=== PATIENT | female | born 1945 | race Caucasian/White ===

== ENCOUNTER 2018-12-25 10:05 | Emergency (ER) | payer MEDICARE, MEDICAID ==
[~2018-12-25] VITALS: Ht 157.5 cm; Wt 79.4 kg
[2018-12-25 10:44] VITALS: Ht 157.5 cm; Wt 79.4 kg
[2018-12-25 12:05] LABS: BASOPHIL % 0.2 % (0-2); CALCIUM 9.6 mg/dL (8.5-10.1); CARBON DIOXIDE 30.7 mmol/L (21-32); CHLORIDE SERUM 102 mmol/L (98-107); CREATININE SERUM 0.7 mg/dL (0.6-1.0); GLUCOSE SERUM 102 mg/dL (74-106); PLATELET COUNT 182 x10^3mcL (130-400); POTASSIUM SERUM 4.5 mmol/L (3.5-5.1); RED CELL DISTRIBUTION WIDTH 13.3 % (11.5-14.5); SODIUM SERUM 139 mmol/L (136-145)
[2018-12-25 12:09] LABS: ALBUMIN 3.6 g/dL (3.4-5.0); ALKALINE PHOSPHATASE 63 U/L (46-116); ALT/SGPT 30 U/L (14-59); AST/SGOT 19 U/L (15-37); BILIRUBIN TOTAL 0.54 mg/dL (0.20-1.00); LIPASE 124 IU/L (73-393); TOTAL PROTEIN, SERUM 6.9 g/dL (6.4-8.2)
[2018-12-25 13:57] LABS: microscopic required? YES; urine erythrocyte NEGATIVE (NEGATIVE)
[2018-12-25 15:23] VITALS: BP 128/76
== END 2018-12-25 15:23 | disposition home or self-care (01) ==
LOC: ED 10:05
PROVIDERS: Emergency Medicine
DX: K29.70 Gastritis, unspecified, without bleeding (principal); G44.209 Tension-type headache, unspecified, not intractable; K59.00 Constipation, unspecified; M54.2 Cervicalgia; R20.0 Anesthesia of skin; R06.02 Shortness of breath; I10 Essential (primary) hypertension; E11.9 Type 2 diabetes mellitus without complications; E78.00 Pure hypercholesterolemia, unspecified; K21.9 Gastro-esophageal reflux disease without esophagitis; Z90.49 Acquired absence of other specified parts of digestive tract; Z90.710 Acquired absence of both cervix and uterus
CPT/HCPCS: 36600; J1885; J7030